=== PATIENT | male | born 1955 | race African-American/Black ===

== ENCOUNTER 2022-09-12 13:46 | Emergency (ER) | payer MEDICAID, OTHER ==
[~2022-09-12] VITALS: Ht 177.8 cm; Wt 82.0 kg
[2022-09-12 13:51] VITALS: BP 140/77
[2022-09-12] MEDS ORDERED: TRAMADOL 50MG TABLET PO ONE (15:15)
[2022-09-12] MEDS ORDERED: METH-773 MT (17:49)
[2022-09-12] MEDS ORDERED: IBUP-2029 MT (17:49)
== END 2022-09-12 18:03 | disposition home or self-care (01) ==
LOC: ER 14:03
DX: S09.8XXA Other specified injuries of head, initial encounter (principal); M54.2 Cervicalgia; M54.50 Low back pain, unspecified; Z21 Asymptomatic human immunodeficiency virus [HIV] infection status; W01.0XXA Fall on same level from slipping, tripping and stumbling without subsequent striking against object, initial encounter; Y93.89 Activity, other specified; Y92.512 Supermarket, store or market as the place of occurrence of the external cause; Y99.8 Other external cause status
CPT/HCPCS: 72100; 99284